=== PATIENT | female | born 1975 | race Hispanic/Latino ===

== ENCOUNTER 2024-04-29 16:24 | Emergency (ER) | payer SELFPAY ==
[~2024-04-29] VITALS: Ht 162.6 cm; Wt 66.2 kg
[2024-04-29 16:33] VITALS: BP 158/83; PULSE 110; RESP 18; TEMP 99; O2SAT 97
--- NOTE | 2024-04-29 16:47 | NUR ---
RACHAEL GOMES CALLED AND STATED THEY WOULD SEND AN OFFICER HARIKA TO THE ER
--- NOTE | 2024-04-29 16:55 | NUR ---
WOUND CLEANED PER DR ORDER, PT TOLERATED WELL
[2024-04-29] MEDS ORDERED: AMOX1TAB16 PO (16:57)
--- NOTE | 2024-04-29 16:57 | ERN ---
ED Note History of Present Illness Stated Complaint: ANKLE PAIN FROM DOG BITE Chief Complaint: Animal Bite Time Seen by MD: 16:29 Time Seen by Midlevel: 16:33 Dictation: 48-year-old female with no past medical history coming in complaining of ankle bite to the left ankle onset about 30 minutes. Patient states she just got off her car and dog came and attacked her. No other complaints Allergies: Coded Allergies: No Known Drug Allergies (Unverified Allergy, Unknown, 04/29/24) Past Medical History Past Medical History: No Pertinent History Surgical History: Review of System Dictation Constitutional: Negative for fever,chills, and weight loss Eyes: Negative for injury, pain,redness, and discharge ENT: Negative for injury,pain or swelling Cardiovascular: Negative for chest pain, palpitations, and edema Respiratory: Negative for shortness of breath, cough, and wheezing, Abdomen/GI: Negative for abdominal pain, nausea, vomiting, diarrhea, and constipation Back: Negative for injury and pain : Negative for injury, bleeding and discharge MS/Extremity: Negative for injury and deformity Skin: Negative for rash, and discoloration, dog bite Neuro: Negative for headache, weakness, numbness, tingling, and seizure Psych: Negative for suicide ideation, homicidal ideation, and hallucinations Review of Systems: was completed Initial Vital Sign VS Vital Signs Date Time Temp Pulse Resp B/P (MAP) Pulse Ox O2 Delivery O2 Flow Rate FiO2 04/29/24 16:27 99.0 110 18 158/83 97 0 04/29/24 16:33 Room Air* 21 Physical Exam Dictation General: awake, alert, NAD Head/Face: Normocephalic, atraumatic Eyes: PERRL, EOMI, vision at baseline ENT: oral cavity clear, TMs clear, no signs of infection Neck: Trachea midline, supple, no nuchal rigidity Cardiovascular: RRR, normal S1/S2, No MRGs, no JVD Respiratory: CTAB, no respiratory distress, No rales or wheezes Abdomen: Soft, non-tender, non-distended, normal bowel sounds, no guarding or rebound. Skin: Warm, dry, normal turgor, no rash, minimal abrasion on the right lateral ankle MS/Extremity: Pulses equal, no cyanosis, neurovascular intact, FROM Neuro: COAx4, GCS 15, strength 5/5, CN 2-12 intact, normal cerebellar exam, normal gait, Psych: Normal behavior, mood, and affect normal ED Course ED Course Orders Procedure Category Date Status Time *Nursing CPOE 04/29/24 Verified Communication: 16:53 Vital Signs Date Time Temp Pulse Resp B/P (MAP) Pulse Ox O2 Delivery O2 Flow Rate FiO2 04/29/24 16:33 99.0 110 18 158/83 97 Room Air* 0 21 04/29/24 16:27 99.0 110 18 158/83 97 0 Medical Decision Making MDM MDM: 48-year-old female with no past medical history coming in complaining of ankle bite to the left ankle onset about 30 minutes. Patient states she just got off her car and dog came and attacked her. No other complaints. On physical exam there is minor abrasion of the left lateral aspect of the ankle, no bleeding, no redness, no streaking, no swelling. Wound was cleaned. We will prescribe Augmentin. Educated patient to return if she has any signs of infection. Patient verbalized understanding, answered all questions. Differential diagnosis: Puncture wound, laceration, abrasion, Rationale: Tests considered and ordered secondary to shared decision making include: Previous outside records reviewed: Old ER visits. Risk of complication and/or morbidity or mortality of patient management: None Medications-Per medication reconciliation Need for hospitalization: Patient does not meet criteria for hospitalization. Need for emergency major/minor surgery: No There are no social concerns with this patient. Prescription drug management Prescriptions will include symptomatic care Patient's prior external medical records from other ER visits were reviewed by me as indicated. Prior testing and results from previous visits were reviewed. Prior tests were taken into account with medical decision making and resource utilization, independent historian/historians were used to obtain complete medical history. I independently interpreted the test that were performed, results were reviewed by me and considered findings on radiology if ordered. Medical management and examination interpretation discussions were had by me with other qualified healthcare professionals as indicated for the patient's care. DX & DISP Disposition: Discharge Departure Impression: Primary Impression: Dog bite Condition: Stable Scripts Amoxicillin/Potassium Clav (Amox Tr-K Clv 875-125 mg Tab) 875 Mg-125 Mg Tablet 1 TAB PO BID for 10 Days, #20 TAB 0 Refills Prov: VENTURA BRAY [employer] 04/29/24 Additional Instructions: Cleaned wound with soap and water. Take antibiotics as prescribed. Return to the ER if you notice any signs of infection. Time of Disposition: 16:56 I have reviewed the case, and I agree with, Diagnosis and Plan VENTURA BRAY NP Apr 29, 2024 16:57
--- NOTE | 2024-04-29 17:08 | NUR ---
D/C PENDING OFFICER TO MAKE REPORT OF EVENTS
--- NOTE | 2024-04-29 17:35 | NUR ---
PT DID NOT WANT TO WAIT FOR OFFICER AND STATED SHE WANTS TO LEAVE, [employer]IT [employer] W[employer]ER VENTURA AWARE
== END 2024-04-29 17:37 | disposition home or self-care (01) ==
LOC: EDH 16:24
DX: S91.052A Open bite, left ankle, initial encounter (principal); W54.0XXA Bitten by dog, initial encounter; Y93.89 Activity, other specified; Y92.89 Other specified places as the place of occurrence of the external cause; Y99.8 Other external cause status
CPT/HCPCS: 99283

== ENCOUNTER 2024-08-27 05:34 | Emergency (ER) | payer SELFPAY ==
[~2024-08-27] VITALS: Ht 162.6 cm; Wt 81.6 kg
[~2024-08-27 05:34] MED LIST: AMOX1TAB16 PO
--- NOTE | 2024-08-27 06:01 | ERN ---
General Chief Complaint: Other Problems Stated Complaint: SCORPION STING Time Seen by MD: 05:55 Source: patient History of Present Illness Initial Comments Patient is a 48-year-old female who was gardening at night and she felt something run up her sleeve and then sting her right shoulder. She did not get a good look at the insect that bit her but she is concerned that it is a scorpion and she comes to the emergency room for evaluation. Timing/Duration: 1-3 hours Allergies: Coded Allergies: No Known Drug Allergies (Unverified Allergy, Unknown, 04/29/24) Home Meds Active Scripts Amoxicillin/Potassium Clav (Amox Tr-K Clv 875-125 mg Tab) 875 Mg-125 Mg Tablet, 1 TAB PO BID for 10 Days, #20 TAB 0 Refills Prov:VENTURA BRAY NP 04/29/24 Past Medical History Past Medical History: No Pertinent History Past Surgical History: ROS Dictation Patient's review of systems is currently negative beyond a little redness and swelling on her right arm. EENTM: (-) eye pain, (-) blurred vision, (-) tearing, (-) double vision, (-) ear pain, (-) ear discharge, (-) nose pain, (-) nose congestion, (-) throat pain, (-) Throat swelling, (-) mouth pain, (-) tooth pain, (-) mouth swelling, (-) other documentation Respiratory: (-) cough, (-) orthopnea, (-) short of breath, (-) stridor, (-) wheezing, (-) other documentation Cardiovascular: (-) chest pain, (-) edema, (-) palpitations, (-) syncope, (-) dyspnea on exertion, (-) other documentation Gastrointestinal/Abdominal: (-) nausea, (-) vomiting, (-) diarrhea, (-) abdominal pain, (-) abdominal distention, (-) constipation, (-) rectal bleeding, (-) dark stool/melena, (-) other documentation Genitourinary: (-) vaginal discharge, (-) vaginal bleeding, (-) dysuria, (-) frequency, (-) hematuria, (-) pain, (-) other documentation Musculoskeletal: (-) Neck pain, (-) back pain, (-) Flank Pain, (-) joint pain, (-) joint swelling, (-) muscle pain, (-) muscle stiffness, (-) gout, (-) other documentation Skin: (-) laceration, (-) contusion, (-) abrasion, (-) abscess, (-) rash, (-) change in color, (-) change in hair, (-) change in nails, (-) diaphoresis, (-) dryness, (-) other documentation Neuro: (-) altered mental status, (-) headache, (-) syncope, (-) paralysis, (-) numbness, (-) seizure, (-) pre-existing deficit, (-) tremors, (-) weakness, (-) dizziness, (-) slurred speech, (-) vertigo, (-) other documentation Physical Exam General Appearance: (+) mild distress Orientation: (+) alert, (+) oriented x 3 Head/Face Trauma: No Eye: bilateral eye normal inspection, bilateral eye PERRL, bilateral eye EOMI Ear, Nose, Throat: (+) hearing grossly normal, (+) normal ENT inspection, (+) moist mucous membraine Neck: (+) normal inspection, (+) supple Respiratory: (+) chest non-tender, (+) lungs clear, (+) well ventilated Heart: (+) regular, (+) no gallop Vascular: (+) no edema, (+) normal peripheral pulse Extremities Comment Patient's right shoulder does have a round red patch that is only slightly warm and slightly erythematous and there is minimal swelling at this point. Results Laboratory and Microbiology Lab and Micro Result Laboratory Tests Test 08/27/24 05:59 Urine HCG, Qualitative NEGATIVE (NEGATIVE) MDM Currently there are no poison in his scorpions in [facility] and most things can be treated conservatively. I will give the patient some IV Benadryl and famotidine. We will apply a cold compress to the arm. I will order CBC chemistry panel. And observe the patient for a short time in the ED to be sure she is safe for discharge and does not have an an unusual allergic reaction to this bug bite. Patient's arm swelling and redness have completely disappeared with the steroid Benadryl and famotidine therapy. She can go home ED Course Orders Procedure Category Date Status Time ,Urine Test LAB 08/27/24 Complete 05:58 Famotidine 20mg Vial PHA 08/27/24 Complete (Pepcid 20mg Vial) 06:30 Methylprednisolone PHA 08/27/24 Complete Succ 125mg (Solu-Medr 06:30 Diphenhydramine Hcl PHA 08/27/24 Complete (Benadryl Inj) 06:30 Current Medications Medications (Trade) Dose Ordered Sig/Janelle Route PRN Reason Start Time Stop Time Status Last Admin Dose Admin Diphenhydramine HCl (BENAdryl INJ) 50 mg ONCE ONCE IV 08/27/24 06:30 08/27/24 06:31 DC 08/27/24 06:17 Famotidine (Pepcid 20mg Vial) 20 mg ONCE ONCE IV 08/27/24 06:30 08/27/24 06:31 DC 08/27/24 06:17 Methylprednisolone Sodium Succinate (Solu-medROL 125MG) 125 mg ONCE ONCE IVP 08/27/24 06:30 08/27/24 06:31 DC 08/27/24 06:17 Vital Signs Date Time Temp Pulse Resp B/P (MAP) Pulse Ox O2 Delivery O2 Flow Rate FiO2 08/27/24 06:06 98.4 60 18 143/63 99 Room Air* 0 21 08/27/24 05:47 97.0 62 16 125/53 99 Room Air 0 DX & DISP Disposition: Discharge Departure Impression: Primary Impression: Insect bite Condition: Stable Referrals: SELF,REFERRAL (PCP) Please return to the emergency room if you have difficulty breathing or appeared to have a delayed allergic reaction to the insect bite to your right shoulder. ESPERANZA JONES MD Aug 27, 2024 06:01
[2024-08-27 06:06] VITALS: BP 143/63; PULSE 60; RESP 18; TEMP 98.5; O2SAT 99
[2024-08-27] MEDS: FAMOTIDINE 20MG VIAL IV ONE (06:17)
== END 2024-08-27 07:02 | disposition home or self-care (01) ==
LOC: EDH 05:34
DX: T63.2X1A Toxic effect of venom of scorpion, accidental (unintentional), initial encounter (principal); Z79.899 Other long term (current) drug therapy; Y93.89 Activity, other specified; Y92.89 Other specified places as the place of occurrence of the external cause; Y99.8 Other external cause status
CPT/HCPCS: 99284; 96374; 96375; 81025; J2919; J1200; J3490